=== PATIENT | female | born 1955 | race Asian ===

== ENCOUNTER 2018-03-26 15:54 | Emergency (ER) | payer OTHER ==
[~2018-03-26] VITALS: Ht 154.9 cm; Wt 45.9 kg
[2018-03-26 16:01] VITALS: BP 143/87
[2018-03-26] MEDS ORDERED: METO25 PO (16:06)
[2018-03-26] MEDS ORDERED: ASPI81 PO (16:06)
[2018-03-26] MEDS ORDERED: SIMV-259 PO (16:06)
[2018-03-26] MEDS ORDERED: RANO500T3 PO (16:06)
[2018-03-26] MEDS ORDERED: ISOS10TA16 PO (16:06)
[2018-03-26] MEDS ORDERED: ALBUTEROL SULFATE HFA 90 MCG/PUFF 8 GM INHALER IH ONE (18:30)
== END 2018-03-26 18:43 | disposition home or self-care (01) ==
LOC: EMS 15:55
DX: J20.9 Acute bronchitis, unspecified (principal); E78.00 Pure hypercholesterolemia, unspecified; I10 Essential (primary) hypertension; F17.210 Nicotine dependence, cigarettes, uncomplicated; Z79.82 Long term (current) use of aspirin
CPT/HCPCS: J3535

== ENCOUNTER 2018-05-26 10:39 | Emergency (ER) | payer OTHER ==
[~2018-05-26] VITALS: Ht 157.5 cm; Wt 46.8 kg
[~2018-05-26 10:39] MED LIST: ASPI81 PO; ISOS10TA16 PO; METO25 PO; RANO500T3 PO; SIMV-259 PO
[2018-05-26 11:12] VITALS: BP 137/96
[2018-05-26] MEDS ORDERED: IBUPROFEN 600 MG TABLET PO ONE (13:15)
== END 2018-05-26 14:31 | disposition home or self-care (01) ==
LOC: EMS 10:39
DX: M79.632 Pain in left forearm (principal); F17.210 Nicotine dependence, cigarettes, uncomplicated; I10 Essential (primary) hypertension; E78.00 Pure hypercholesterolemia, unspecified; Z79.82 Long term (current) use of aspirin
CPT/HCPCS: 99406

== ENCOUNTER → 2021-09-19 | Outpatient (CLI) | payer MEDICARE, OTHER ==
[~2021-09-19] VITALS: Ht 156.2 cm; Wt 49.4 kg
[~2021-09-19] MED LIST changes: +ALEN70TA65 PO; +ASPI-1450 PO; -ASPI81 PO; +CALC-911 PO; +NITR0.4T52 SL
[2021-09-19 11:11] VITALS: BP 121/63
== END | disposition home or self-care (01) ==
LOC: SRCNTR 10:52
PROVIDERS: ATTEND Internal Medicine
DX: I49.1 Atrial premature depolarization (principal); I10 Essential (primary) hypertension; E78.5 Hyperlipidemia, unspecified; I20.9 Angina pectoris, unspecified
CPT/HCPCS: 93005; G0463

== ENCOUNTER 2021-09-22 06:21 | Day surgery (SDC) | payer MEDICARE, OTHER ==
[2021-09-20 10:49] LABS: COVID AG,FIA SOURCE NASAL SWAB
[2021-09-20 11:18] LABS: BASOPHILS % (AUTO) 0.9 % (0.0-2.0); HEMATOCRIT 37.5 % (36-46); HEMOGLOBIN 12.3 g/dL (12.0-16.0); LYMPHOCYTES # (AUTO) 1.1 K/uL (1.0-4.8); LYMPHOCYTES % (AUTO) 21.7 % (22.0-44.0); MEAN CORPUSCULAR HEMOGLOBIN 27.5 pg (26.0-34.0); MEAN CORPUSCULAR HGB CONC 32.7 G/dL (31.0-37.0); MEAN CORPUSCULAR VOLUME 84 fL (80-100); MONOCYTES # (AUTO) 0.6 K/uL (0.1-1.0); MONOCYTES % (AUTO) 13.1 % (2.0-9.0); NEUTROPHILS % (AUTO) 61.3 % (40.0-70.0); PLATELET COUNT (AUTO) 152 K/uL (150-450); RED BLOOD CELL COUNT(AUTO) 4.45 MIL/uL (4.00-5.20); RED CELL DISTRIBUTION WIDTH 13.8 % (11.5-14.5)
[2021-09-20 11:39] LABS: ANION GAP 7 mmol/L (8-16); CALCIUM, TOTAL 8.7 mg/dL (8.8-10.5); CARBON DIOXIDE 28 mmol/L (22-29); CHLORIDE 106 mmol/L (98-107); CREATININE 0.72 mg/dL (0.60-1.30); GLOMERULAR FILTR. RATE CALC > 60 mL/min (>60); GLUCOSE,RANDOM 87 mg/dL (70-110); POTASSIUM 3.5 mmol/L (3.5-5.1); SODIUM SERUM 141 mmol/L (136-145); UREA NITROGEN, BLOOD 13 mg/dL (7-18)
[2021-09-20 11:44] LABS: ALANINE AMINOTRANSFERASE 12 U/L (12-78); ALBUMIN 3.4 g/dL (3.4-5.0); ALKALINE PHOSPHATASE 28 U/L (46-116); ASPARTATE AMINOTRANSFERASE 14 U/L (15-37); BILIRUBIN,TOTAL 0.6 mg/dL (0.1-1.0); TOTAL PROTEIN, SERUM 6.4 g/dL (6.4-8.2)
[2021-09-20 11:47] LABS: INR 1.1 (0.9-1.1); PROTHROMBIN TIME 10.7 SEC (9.4-11.6)
[~2021-09-22] VITALS: Ht 157.5 cm; Wt 48.6 kg
[2021-09-22] MEDS ORDERED: SODIUM CHLORIDE 0.9% 1,000 ML IV ONE (07:00)
[2021-09-22] MEDS ORDERED: SODIUM CHLORIDE 0.9% 1,000 ML ONE (07:12)
[2021-09-22] MEDS ORDERED: LIDOCAINE 2% VISCOUS 15 ML SOLUTION UDCUP ONE (08:07)
[2021-09-22] MEDS ORDERED: MIDAZOLAM HCL 2 MG/2 ML VIAL ONE (08:07)
[2021-09-22] MEDS ORDERED: FentaNYL CITRATE PF 100 MCG/2 ML VIAL ONE (08:07)
[2021-09-22] MEDS ORDERED: LIDOCAINE 2% VISCOUS 15 ML SOLUTION UDCUP PO ONE (08:15)
[2021-09-22] MEDS ORDERED: FentaNYL CITRATE PF 100 MCG/2 ML VIAL IVP ONE ×2 (09:00)
[2021-09-22] MEDS ORDERED: MIDAZOLAM HCL 2 MG/2 ML VIAL IVP ONE ×2 (09:00)
== END 2021-09-22 11:15 | disposition home or self-care (01) ==
LOC: CATHLAB 06:21
PROVIDERS: ATTEND Internal Medicine
DX: I08.3 Combined rheumatic disorders of mitral, aortic and tricuspid valves (principal); Z79.01 Long term (current) use of anticoagulants; Z90.710 Acquired absence of both cervix and uterus; I25.2 Old myocardial infarction; Z98.890 Other specified postprocedural states; Z79.82 Long term (current) use of aspirin
CPT/HCPCS: 36415 ×2; 80053; 85025; 85610; 85651; 85730; 87040; 87426; 93005; 93312; 93325; 99152; 99153; C9803; J2250; J3010; J7030

== ENCOUNTER → 2021-11-07 | Outpatient (CLI) | payer MEDICARE, OTHER ==
[2021-11-07 10:49] VITALS: BP 96/54
== END | disposition home or self-care (01) ==
LOC: SRCNTR 10:21
PROVIDERS: ATTEND Internal Medicine
DX: I10 Essential (primary) hypertension (principal); Z09 Encounter for follow-up examination after completed treatment for conditions other than malignant neoplasm; E78.5 Hyperlipidemia, unspecified; I20.9 Angina pectoris, unspecified; I34.0 Nonrheumatic mitral (valve) insufficiency
CPT/HCPCS: G0463; Z7500

== ENCOUNTER 2021-11-25 15:40 | Inpatient (IN) | payer MEDICARE, OTHER ==
[~2021-11-25] VITALS: Ht 157.5 cm; Wt 48.6 kg
[2021-11-25 18:47] LABS: BASOPHILS % (AUTO) 0.9 % (0.0-2.0); EOSINOPHILS % (AUTO) 1.5 % (1.0-6.0); HEMATOCRIT 41.3 % (36-46); HEMOGLOBIN 13.5 g/dL (12.0-16.0); LYMPHOCYTES # (AUTO) 1.2 K/uL (1.0-4.8); LYMPHOCYTES % (AUTO) 18.9 % (22.0-44.0); MEAN CORPUSCULAR HEMOGLOBIN 27.4 pg (26.0-34.0); MEAN CORPUSCULAR HGB CONC 32.7 G/dL (31.0-37.0); MEAN CORPUSCULAR VOLUME 84 fL (80-100); MONOCYTES # (AUTO) 0.7 K/uL (0.1-1.0); MONOCYTES % (AUTO) 11.5 % (2.0-9.0); NEUTROPHILS # (AUTO) 4.1 K/uL (1.8-7.7); NEUTROPHILS % (AUTO) 67.2 % (40.0-70.0); PLATELET COUNT (AUTO) 162 K/uL (150-450); RED BLOOD CELL COUNT(AUTO) 4.94 MIL/uL (4.00-5.20); RED CELL DISTRIBUTION WIDTH 13.9 % (11.5-14.5)
[2021-11-25 18:58] LABS: ANION GAP 9 mmol/L (8-16); CALCIUM, TOTAL 10.2 mg/dL (8.8-10.5); CARBON DIOXIDE 27 mmol/L (22-29); CHLORIDE 105 mmol/L (98-107); CREATININE 0.75 mg/dL (0.60-1.30); GLUCOSE,RANDOM 90 mg/dL (70-110); SODIUM SERUM 141 mmol/L (136-145); UREA NITROGEN, BLOOD 12 mg/dL (7-18)
[2021-11-25 19:00] LABS: GLOMERULAR FILTR. RATE CALC > 60 mL/min (>60)
[2021-11-25 19:06] LABS: B-TYPE NATRIURETIC PEPTIDE 241 pg/mL (0-100)
[2021-11-25 19:09] LABS: ALANINE AMINOTRANSFERASE 12 U/L (12-78); ALBUMIN 3.7 g/dL (3.4-5.0); ALKALINE PHOSPHATASE 26 U/L (46-116); ASPARTATE AMINOTRANSFERASE 14 U/L (15-37); BILIRUBIN,TOTAL 0.9 mg/dL (0.1-1.0); TOTAL PROTEIN, SERUM 7.1 g/dL (6.4-8.2)
[2021-11-25 22:21] LABS: COVID AG,FIA SOURCE NASAL SWAB
[2021-11-26] MEDS ORDERED: ONDANSETRON HCL 4 MG/2 ML VIAL IVP PRN (06:45)
[2021-11-26] MEDS ORDERED: HYDROCODONE/ACETAMINOPHEN 5-325 MG TABLET PO PRN (06:45)
[2021-11-26] MEDS ORDERED: BISACODYL 10 MG RECTAL RECTAL SUPPOSITORY PR PRN (06:45)
[2021-11-26] MEDS ORDERED: ACETAMINOPHEN 325 MG TABLET PO PRN (06:45)
[2021-11-26] MEDS ORDERED: MAGNESIUM HYDROXIDE SUSPENSION 30 ML UDCUP PO PRN (06:45)
[2021-11-26] MEDS ORDERED: ZOLPIDEM TARTRATE 5 MG TABLET PO PRN (06:45)
[2021-11-26] MEDS ORDERED: MORPHINE SULFATE 2 MG/ML SYRINGE IVP PRN (06:45)
[2021-11-26] MEDS: HEPARIN SODIUM,PORCINE 5,000 UNITS/ML VIAL SQ SCH ×3 (08:42→23:26)
[2021-11-26] MEDS: ASPIRIN 81 MG CHEWABLE TABLET PO SCH (09:17)
[2021-11-26] MEDS: PANTOPRAZOLE SODIUM 40 MG DR TABLET PO SCH (09:17)
[2021-11-26] MEDS: DOCUSATE SODIUM 100 MG CAPSULE PO SCH ×2 (09:17→20:00)
[2021-11-26 10:25] VITALS: BP 160/92
[2021-11-26 10:27] VITALS: BP 152/92
[2021-11-26] MEDS: SIMVASTATIN 10 MG TABLET PO SCH (10:45)
[2021-11-26] MEDS: ISOSORBIDE DINITRATE 10 MG TABLET PO SCH (10:46)
[2021-11-26] MEDS: RANOLAZINE 500 MG ER TABLET PO SCH ×2 (10:46→19:59)
[2021-11-26] MEDS: METOPROLOL TARTRATE 25 MG TABLET PO SCH (11:30)
[2021-11-26] MEDS ORDERED: PNEUMOCOCCAL VACCINE POLYVALENT 0.5 ML VIAL [PPSV23] IM. ONE (12:15)
[2021-11-26 12:32] VITALS: BP 114/57
[2021-11-26] MEDS: PrednisoLONE ACETATE 1% 5 ML OPHTHALMIC SUSPENSION OD SCH ×3 (13:30→19:59)
[2021-11-26] MEDS: KETOROLAC TROMETHAMINE 0.5% 5 ML OPHTHALMIC SOLUTION OD SCH ×3 (13:30→19:59)
[2021-11-26 16:09] VITALS: BP 120/63
[2021-11-26 19:34] VITALS: BP 112/65
[2021-11-26 23:33] VITALS: BP 130/67
[2021-11-27 04:46] VITALS: BP 135/66
[2021-11-27 06:10] LABS: BASOPHILS % (AUTO) 0.8 % (0.0-2.0); EOSINOPHILS % (AUTO) 2.7 % (1.0-6.0); HEMOGLOBIN 12.7 g/dL (12.0-16.0); LYMPHOCYTES # (AUTO) 1.2 K/uL (1.0-4.8); LYMPHOCYTES % (AUTO) 21.4 % (22.0-44.0); MEAN CORPUSCULAR HEMOGLOBIN 27.6 pg (26.0-34.0); MEAN CORPUSCULAR HGB CONC 32.6 G/dL (31.0-37.0); MEAN CORPUSCULAR VOLUME 85 fL (80-100); MONOCYTES # (AUTO) 0.7 K/uL (0.1-1.0); MONOCYTES % (AUTO) 11.9 % (2.0-9.0); NEUTROPHILS # (AUTO) 3.5 K/uL (1.8-7.7); NEUTROPHILS % (AUTO) 63.2 % (40.0-70.0); PLATELET COUNT (AUTO) 146 K/uL (150-450); RED BLOOD CELL COUNT(AUTO) 4.61 MIL/uL (4.00-5.20); RED CELL DISTRIBUTION WIDTH 13.8 % (11.5-14.5)
[2021-11-27 06:25] LABS: ANION GAP 6 mmol/L (8-16); CALCIUM, TOTAL 8.1 mg/dL (8.8-10.5); CARBON DIOXIDE 29 mmol/L (22-29); CHLORIDE 107 mmol/L (98-107); CREATININE 0.77 mg/dL (0.60-1.30); GLUCOSE,RANDOM 90 mg/dL (70-110); POTASSIUM 3.4 mmol/L (3.5-5.1); SODIUM SERUM 142 mmol/L (136-145); UREA NITROGEN, BLOOD 14 mg/dL (7-18)
[2021-11-27 06:27] LABS: GLOMERULAR FILTR. RATE CALC > 60 mL/min (>60)
[2021-11-27 07:40] VITALS: BP 133/83
[2021-11-27] MEDS: RANOLAZINE 500 MG ER TABLET PO SCH ×2 (07:56→21:03)
[2021-11-27] MEDS: ISOSORBIDE DINITRATE 10 MG TABLET PO SCH (07:56)
[2021-11-27] MEDS: ASPIRIN 81 MG CHEWABLE TABLET PO SCH (07:56)
[2021-11-27] MEDS: METOPROLOL TARTRATE 25 MG TABLET PO SCH (07:56)
[2021-11-27] MEDS: PrednisoLONE ACETATE 1% 5 ML OPHTHALMIC SUSPENSION OD SCH ×4 (07:57→21:03)
[2021-11-27] MEDS: KETOROLAC TROMETHAMINE 0.5% 5 ML OPHTHALMIC SOLUTION OD SCH ×4 (07:57→21:03)
[2021-11-27] MEDS: HEPARIN SODIUM,PORCINE 5,000 UNITS/ML VIAL SQ SCH ×2 (07:57→16:10)
[2021-11-27] MEDS: FUROSEMIDE 20 MG/2 ML VIAL IVP SCH (07:57)
[2021-11-27] MEDS: SIMVASTATIN 10 MG TABLET PO SCH (07:57)
[2021-11-27] MEDS: DOCUSATE SODIUM 100 MG CAPSULE PO SCH ×2 (08:01→21:00)
[2021-11-27] MEDS: PANTOPRAZOLE SODIUM 40 MG DR TABLET PO SCH (08:01)
[2021-11-27 12:00] VITALS: BP 109/71
[2021-11-27] MEDS ORDERED: POTASSIUM CHL 10 MEQ/WATER 50 ML IV PRN (12:15)
[2021-11-27] MEDS ORDERED: POTASSIUM CHLORIDE 20 MEQ ER TABLET PO PRN (12:15)
[2021-11-27 15:56] VITALS: BP 113/64
[2021-11-27 20:08] VITALS: BP 123/72
[2021-11-28] MEDS: HEPARIN SODIUM,PORCINE 5,000 UNITS/ML VIAL SQ SCH ×2 (00:23→08:57)
[2021-11-28 00:31] VITALS: BP 127/56
[2021-11-28 06:03] VITALS: BP 115/54
[2021-11-28 06:31] LABS: BASOPHILS % (AUTO) 0.7 % (0.0-2.0); EOSINOPHILS % (AUTO) 2.4 % (1.0-6.0); HEMATOCRIT 40.2 % (36-46); HEMOGLOBIN 13.1 g/dL (12.0-16.0); LYMPHOCYTES # (AUTO) 1.5 K/uL (1.0-4.8); LYMPHOCYTES % (AUTO) 24.8 % (22.0-44.0); MEAN CORPUSCULAR HEMOGLOBIN 27.4 pg (26.0-34.0); MEAN CORPUSCULAR HGB CONC 32.7 G/dL (31.0-37.0); MEAN CORPUSCULAR VOLUME 84 fL (80-100); MONOCYTES # (AUTO) 0.7 K/uL (0.1-1.0); MONOCYTES % (AUTO) 12.1 % (2.0-9.0); NEUTROPHILS # (AUTO) 3.7 K/uL (1.8-7.7); PLATELET COUNT (AUTO) 158 K/uL (150-450); RED CELL DISTRIBUTION WIDTH 13.7 % (11.5-14.5)
[2021-11-28 07:00] LABS: ANION GAP 5 mmol/L (8-16); CALCIUM, TOTAL 8.4 mg/dL (8.8-10.5); CARBON DIOXIDE 29 mmol/L (22-29); CHLORIDE 107 mmol/L (98-107); CREATININE 0.84 mg/dL (0.60-1.30); GLUCOSE,RANDOM 81 mg/dL (70-110); POTASSIUM 4.2 mmol/L (3.5-5.1); SODIUM SERUM 141 mmol/L (136-145); UREA NITROGEN, BLOOD 14 mg/dL (7-18)
[2021-11-28 07:02] LABS: GLOMERULAR FILTR. RATE CALC > 60 mL/min (>60)
[2021-11-28 07:19] VITALS: BP 130/88
[2021-11-28] MEDS: SIMVASTATIN 10 MG TABLET PO SCH (08:56)
[2021-11-28] MEDS: METOPROLOL TARTRATE 25 MG TABLET PO SCH (08:56)
[2021-11-28] MEDS: DOCUSATE SODIUM 100 MG CAPSULE PO SCH (08:56)
[2021-11-28] MEDS: ISOSORBIDE DINITRATE 10 MG TABLET PO SCH (08:56)
[2021-11-28] MEDS: PANTOPRAZOLE SODIUM 40 MG DR TABLET PO SCH (08:56)
[2021-11-28] MEDS: ASPIRIN 81 MG CHEWABLE TABLET PO SCH (08:56)
[2021-11-28] MEDS: RANOLAZINE 500 MG ER TABLET PO SCH (08:56)
[2021-11-28] MEDS: FUROSEMIDE 20 MG/2 ML VIAL IVP SCH (08:57)
[2021-11-28] MEDS: PrednisoLONE ACETATE 1% 5 ML OPHTHALMIC SUSPENSION OD SCH ×2 (08:57→13:58)
[2021-11-28] MEDS: KETOROLAC TROMETHAMINE 0.5% 5 ML OPHTHALMIC SOLUTION OD SCH ×2 (08:58→13:59)
[2021-11-28 11:06] VITALS: BP 93/57
[2021-11-28] MEDS ORDERED: FURO20 PO (11:38)
[2021-11-28 14:22] VITALS: BP 173/97
== END 2021-11-28 14:49 | disposition home or self-care (01) | DRG 291 ==
LOC: EMS 15:40 → 5S 11-26 07:01
PROVIDERS: ADMIT Internal Medicine; ATTEND Internal Medicine
DX: I11.0 Hypertensive heart disease with heart failure (principal); E43 Unspecified severe protein-calorie malnutrition; I50.43 Acute on chronic combined systolic (congestive) and diastolic (congestive) heart failure; Z68.1 Body mass index [BMI] 19.9 or less, adult; Z20.822 Contact with and (suspected) exposure to COVID-19; E78.00 Pure hypercholesterolemia, unspecified; F17.210 Nicotine dependence, cigarettes, uncomplicated; M81.0 Age-related osteoporosis without current pathological fracture; I34.0 Nonrheumatic mitral (valve) insufficiency; I25.118 Atherosclerotic heart disease of native coronary artery with other forms of angina pectoris; Z79.82 Long term (current) use of aspirin; Z79.899 Other long term (current) drug therapy; Z28.21 Immunization not carried out because of patient refusal
CPT/HCPCS: 71045; 80048; 80053; 83880; 84132; 84484; 85025; 99285; J1644; J1940; 36415-L1; 36415-TC

== ENCOUNTER → 2021-12-12 | Outpatient (CLI) | payer MEDICARE, OTHER ==
[~2021-12-12] MED LIST changes: +FURO20 PO
[2021-12-12 11:08] VITALS: BP 118/69
== END | disposition home or self-care (01) ==
LOC: SRCNTR 10:57
PROVIDERS: ATTEND Internal Medicine
DX: I11.0 Hypertensive heart disease with heart failure (principal); I50.9 Heart failure, unspecified; Z09 Encounter for follow-up examination after completed treatment for conditions other than malignant neoplasm; E78.5 Hyperlipidemia, unspecified; I20.8 Other forms of angina pectoris; I34.0 Nonrheumatic mitral (valve) insufficiency; I34.1 Nonrheumatic mitral (valve) prolapse
CPT/HCPCS: G0463; Z7500

== ENCOUNTER 2024-04-26 23:58 | Emergency (ER) | payer MEDICARE, OTHER ==
[~2024-04-26] VITALS: Ht 154.9 cm; Wt 46.4 kg
[~2024-04-26 23:58] MED LIST changes: -FURO20 PO; +FURO20TA5 PO; +RANO500T27 PO; -RANO500T3 PO
[2024-04-27 00:17] VITALS: BP 162/81; PULSE 106; RESP 16; TEMP 98.3; O2SAT 96
[2024-04-27] MEDS ORDERED: AZIT250T9 PO (00:44)
[2024-04-27] MEDS: AZITHROMYCIN 500 MG TABLET PO ONE (00:50)
[2024-04-27] MEDS: PERTUSS(ACELL),DIPH,TET/PF 0.5 ML SYRINGE [ADULT] IM. ONE (00:51)
== END 2024-04-27 01:05 | disposition home or self-care (01) ==
LOC: EMS 04-27
DX: S51.832A Puncture wound without foreign body of left forearm, initial encounter (principal); I10 Essential (primary) hypertension; F17.210 Nicotine dependence, cigarettes, uncomplicated; W55.01XA Bitten by cat, initial encounter; Y93.89 Activity, other specified; Y92.89 Other specified places as the place of occurrence of the external cause; Y99.8 Other external cause status
CPT/HCPCS: 99283; 90715; 90471; J0456